=== PATIENT | male | born 1960 | race Caucasian/White ===

== ENCOUNTER 2021-07-06 08:05 | Inpatient (IN) | payer OTHER ==
[~2021-07-06] VITALS: Ht 185.4 cm; Wt 107.5 kg
[2021-07-06 10:21] LABS: BASOPHIL 0.2 % (0-2); EOSINOPHIL 0.2 % (0-5); HCT 43.8 % (42.0-52.0); HGB 14.6 g/dl (13.2-18.0); LYMPHOCYTE 4.3 % (15-48); MCH 29.3 pg (25.0-31.0); MCHC 33.3 g/dL (32.0-36.0); MCV 87.8 fL (78.0-100.0); MONOCYTE 6.7 % (0-12); MPV 9.8 fL (6.0-9.5); NRBC 0; PLT 297 K/uL (150-400); RBC 4.99 M/uL (4.70-6.00); RDW 12.4 % (11.5-14.0); WBC 22.1 K/uL (4.0-10.5)
[2021-07-06 10:39] LABS: INR 1.31 (0.9-1.2); PROTHROMBIN TIME 15.6 SECONDS (11.8-13.4); PTT 43.6 SECONDS (24.4-34.7)
[2021-07-06 10:50] LABS: ALBUMIN 3.1 g/dL (3.4-5.0); ALKALINE PHOSHATASE 133 U/L (46-116); ALT 42 U/L (16-63); AST 19 U/L (15-37); BILIRUBIN - TOTAL 0.8 mg/dL (0.2-1.0); BUN 12 mg/dL (7-18); BUN/CREAT RATIO (CALC) 16.9 RATIO; C-REACTIVE PROTEIN >18.00 mg/dL (<=0.90); CHLORIDE 93 mmol/L (98-107); CO2 (BICARBONATE) 25 mmol/L (21-32); CREATININE 0.71 mg/dL (0.67-1.17); GLOBULIN (CALCULATION) 5.1 g/dL; GLUCOSE 225 mg/dL (74-106); POTASSIUM 4.3 mmol/L (3.5-5.1); TOTAL PROTEIN 8.2 g/dL (6.4-8.2)
[2021-07-06 11:40] LABS: LACTIC ACID 1.8 mmol/L (0.4-1.9)
[2021-07-07 07:11] LABS: BASOPHIL 0.2 % (0-2); EOSINOPHIL 0.7 % (0-5); HGB 13.5 g/dl (13.2-18.0); LYMPHOCYTE 6.8 % (15-48); MCH 29.2 pg (25.0-31.0); MCHC 33.8 g/dL (32.0-36.0); MCV 86.6 fL (78.0-100.0); MONOCYTE 8.9 % (0-12); MPV 9.4 fL (6.0-9.5); NEUTROPHIL 82.8 % (41-80); NRBC 0; PLT 285 K/uL (150-400); RBC 4.62 M/uL (4.70-6.00); RDW 12.5 % (11.5-14.0)
[2021-07-07 07:13] LABS: WBC 19.1 K/uL (4.0-10.5)
[2021-07-07 07:45] LABS: ALBUMIN 2.7 g/dL (3.4-5.0); BUN/CREAT RATIO (CALC) 17.1 RATIO; CREATININE 0.76 mg/dL (0.67-1.17); GLOBULIN (CALCULATION) 4.9 g/dL; MAGNESIUM 1.9 mg/dL (1.8-2.4); POTASSIUM 3.9 mmol/L (3.5-5.1); TOTAL PROTEIN 7.6 g/dL (6.4-8.2)
--- NOTE | 2021-07-07 17:29 | NUR ---
07/07 Mr. Shaw shares an apartment with his brother. He has been out of work for a year. He is being supported by savings and assistance from his brother. Mr. Shaw does not have a PCP. A [facility] application has been initiated by Linda Agarwal. - Mr. Shaw was educated to [facility]. A referral will be made to the Resource [employer] Machinist if the Medicaid application is approved.
[2021-07-08 07:52] LABS: BASOPHIL 0.3 % (0-2); EOSINOPHIL 1.4 % (0-5); HCT 39.6 % (42.0-52.0); LYMPHOCYTE 12.6 % (15-48); MCH 28.9 pg (25.0-31.0); MCHC 32.8 g/dL (32.0-36.0); MONOCYTE 8.8 % (0-12); MPV 9.9 fL (6.0-9.5); NEUTROPHIL 76.2 % (41-80); NRBC 0; PLT 300 K/uL (150-400); RDW 12.6 % (11.5-14.0); WBC 14.7 K/uL (4.0-10.5)
[2021-07-08 08:21] LABS: BUN/CREAT RATIO (CALC) 14.8 RATIO; CREATININE 0.81 mg/dL (0.67-1.17); POTASSIUM 3.9 mmol/L (3.5-5.1)
--- NOTE | 2021-07-08 15:25 | NUR ---
07/08 Patient has been approved for [facility] Community insurance. The [employer] Operator made an appointment at Dr. Colvin's office.
[2021-07-08] MEDS ORDERED: METFORMIN HCL500 MG PO (16:44)
[2021-07-08] MEDS ORDERED: LEVAQUIN750 MG PO (16:44)
[2021-07-08] MEDS ORDERED: PRINIVIL10 MG PO (16:44)
[2021-07-11] MEDS ORDERED: DOXYCYCLINE MO100 MG PO (16:16)
== END 2021-07-08 17:48 | disposition home or self-care (01) | DRG 854 ==
LOC: FER 08:05 → FMS 11:40 → FOFB 11:40 → FMS 11:41
PROVIDERS: Emergency Medicine; ADMIT Internal Medicine
PROC: 0J9R0ZZ Drainage of Left Foot Subcutaneous Tissue and Fascia, Open Approach (ICD-10-PCS; principal; 2021-07-06)
PROC: 0JBR0ZZ Excision of Left Foot Subcutaneous Tissue and Fascia, Open Approach (ICD-10-PCS; 2021-07-06)
DX: A41.89 Other specified sepsis (principal); L03.116 Cellulitis of left lower limb; E87.1 Hypo-osmolality and hyponatremia; E11.52 Type 2 diabetes mellitus with diabetic peripheral angiopathy with gangrene; L97.528 Non-pressure chronic ulcer of other part of left foot with other specified severity; L02.612 Cutaneous abscess of left foot; Z20.822 Contact with and (suspected) exposure to COVID-19; E11.628 Type 2 diabetes mellitus with other skin complications; I10 Essential (primary) hypertension; E11.621 Type 2 diabetes mellitus with foot ulcer; L97.529 Non-pressure chronic ulcer of other part of left foot with unspecified severity; E11.65 Type 2 diabetes mellitus with hyperglycemia; Z83.3 Family history of diabetes mellitus; Z98.890 Other specified postprocedural states; Z80.3 Family history of malignant neoplasm of breast
CPT/HCPCS: 36415; 73630; 73720; 80048; 80053; 83036; 83605; 83735; 84145; 85025; 85610; 85730; 86140; 87040; 87070; 87075; 87077; 87186; 87205; 94010; A9579; J2543; J3370; J7030; J7050; U0002